=== PATIENT | female | born 1970 | race Caucasian/White ===

== ENCOUNTER 2019-03-27 16:51 | Emergency (ER) | payer OTHER ==
[~2019-03-27] VITALS: Ht 162.6 cm; Wt 102.1 kg
[~2019-03-27 16:51] MED LIST: BACTRIM DS TAB1 EACH PO; CYCLOBENZAPRINE10 MG PO; CYMBALTA20 MG PO; HYDROCHLOROTH12.5 MG PO; LANTUS100 UNITS/ SUB-Q; LOSARTAN-HCTZ1 EAC1 PO; METFORMIN HCL1000 MG PO; METFORMIN HCL500 MG PO; MULTIPLE VITAM1 EACH PO; NOVOLOG100 UNITS/ IV; NOVOLOG100 UNITS/ SUB-Q; PRILOSEC20 MG PO; QSYMIA 3.75 MG1 EACH PO; TRAMADOL HCL50 MG PO
--- OUTSIDE RECORDS SUMMARY | 2019-03-27 16:54 | XMS ---
PreManage Notification: GERRY SAWYER Security Dramatic Agent Events No recent Security Events currently on file CRITERIA MET - [facility] - Has Care Guidelines - [facility] - 2 Visits in 30 Days CARE PROVIDERS TOYIN DEL RIO PHONE: [phone] Indio Machado Current PHONE: Unknown Jean [place] Other Current Orthopedic Surgery \T\ Fracture Clinic PHONE: Unknown Guidelines Source: [employer] [place] Guidelines Date: 09/19/2018 Care Coordination: Mental health services with [employer].\T\nbsp; Please contact [employer] with mental health concerns.\T\nbsp; [place]: [phone]\T\[facility]; Tamie: [phone]. Sha VISIT COUNT (12 MO.) 3 MILLIE Michael TOTAL 3 NOTE: Visits indicate total known visits. ED/UCC VISIT TRACKING (12 MO.) 03/27/2019 16:51 MILLIE Meek [place] TYPE: Emergency COMPLAINT: - SKIN PROBLEM 03/23/2019 20:05 MILLIE Meek [place] TYPE: Emergency COMPLAINT: - SKIN PROBLEM 09/16/2018 15:22 MILLIE Meek [place] TYPE: Emergency COMPLAINT: - LEFT FLANK PAIN/NON INJURY INPATIENT VISIT TRACKING (12 MO.) No inpatient visits to display in this time frame [email or web address]
== END 2019-03-27 18:00 | disposition home or self-care (01) ==
LOC: ED 16:51
DX: L02.212 Cutaneous abscess of back [any part, except buttock and flank] (principal); L03.312 Cellulitis of back [any part except buttock and flank]; E11.9 Type 2 diabetes mellitus without complications; I10 Essential (primary) hypertension; E78.5 Hyperlipidemia, unspecified; Z87.891 Personal history of nicotine dependence; Z88.5 Allergy status to narcotic agent; Z88.8 Allergy status to other drugs, medicaments and biological substances; Z79.899 Other long term (current) drug therapy; Z79.84 Long term (current) use of oral hypoglycemic drugs
CPT/HCPCS: 99282

== ENCOUNTER 2019-06-12 15:50 | Emergency (ER) | payer OTHER ==
[~2019-06-12] VITALS: Ht 162.6 cm; Wt 108.9 kg
--- OUTSIDE RECORDS SUMMARY | 2019-06-12 15:54 | XMS ---
PreManage Notification: GERRY SAWYER Security Rehab Tech Events No recent Security Events currently on file CRITERIA MET - Group Notification - [facility] CARE PROVIDERS Karan Kagn Internal Medicine: Pulmonary Disease 03/28/2019-Current PHONE: Unknown TOYIN DEL RIO PHONE: [phone] Indio Machado MD PHONE: Unknown Jean [place] Current Orthopedic Surgery \T\ Fracture Clinic PHONE: Unknown Guidelines Source: Melanie - [place] Guidelines Date: 09/19/2018 Care Coordination: Mental health services with [employer].\T\nbsp; Please contact [employer] with mental health concerns.\T\nbsp; [place] Jain: [phone]\T\nbsp; Tamie: [phone]. Care History Medical/Surgical 03/28/2019 [facility] - PATIENT DOES NOT HAVE A PCP- LAST APT WITH SUSAN LEVINE ON 12/11/17. - PLEASE HAVE PATIENT PROVIDE UPDATED CONTACT NUMBER-NUMBER ON FILE GOES TO AN UNKNOWN MALE VOICEMAIL. - PLEASE REFER PATIENT TO THE WALK IN CLINIC TO ESTABLISH CARE. E.D. VISIT COUNT (12 MO.) 4 [facility]. TOTAL 4 NOTE: Visits indicate total known visits. ED/UCC VISIT TRACKING (12 MO.) 06/12/2019 15:51 MILLIE Meek [place] TYPE: Emergency COMPLAINT: - POSSIBLE OVERDOSE 03/27/2019 16:51 MILLIE Meek [place] TYPE: Emergency COMPLAINT: - SKIN PROBLEM DIAGNOSES: - Other custodial (current) drug therapy - Essential (primary) hypertension - Encntr for surgical aftcr fol surgery on the skin, subcu - Allergy status to narcotic agent status - 1 Type 2 diabetes mellitus without complications - Cellulitis of back [any part except buttock] - Cutaneous abscess of back [any part, except buttock] - Cutaneous abscess of back [any part, except buttock] - Allergy status to oth drug/meds/biol subst status - 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 - Personal history of nicotine dependence - Hyperlipidemia, unspecified 03/23/2019 20:05 MILLIE Meek [place] TYPE: Emergency COMPLAINT: - SKIN PROBLEM DIAGNOSES: - snf (current) use of oral hypoglycemic drugs - Cutaneous abscess of back [any part, except buttock] - Other long chain quiller tender (current) drug therapy - Allergy status to oth drug/meds/biol subst status - 1 Type 2 diabetes mellitus without complications - Essential (primary) hypertension - Allergy status to narcotic agent status - Hyperlipidemia, unspecified - Nicotine dependence, unspecified, uncomplicated 09/16/2018 15:22 MILLIE Meek [place] TYPE: Emergency COMPLAINT: - LEFT FLANK PAIN/NON INJURY INPATIENT VISIT TRACKING (12 MO.) No inpatient visits to display in this time frame [id number]
--- NOTE | 2019-06-13 10:58 | EKG ---
[facility] [address] [place], [place] [address] Signed Normal sinus rhythm Normal ECG No previous ECGs available Confirmed by GURDEEP SNOW MD ([id number]) on 06/13/2019 10:58:01 AM Electronically Signed By: GURDEEP SNOW MD 06/13/19 1058 PATIENT NAME: GERRY SAWYER Electrocardiogram DATE OF : 72 PHYSICIAN: GURDEEP SNOW MD REPORT #: [id number] REPORT IS CONFIDENTIAL AND NOT TO BE RELEASED WITHOUT AUTHORIZATION
== END 2019-06-13 00:46 | disposition home or self-care (01) ==
LOC: ED 15:50
DX: T46.5X2A Poisoning by other antihypertensive drugs, intentional self-harm, initial encounter (principal); F32.9 Major depressive disorder, single episode, unspecified; E11.9 Type 2 diabetes mellitus without complications; I10 Essential (primary) hypertension; E78.5 Hyperlipidemia, unspecified; F17.200 Nicotine dependence, unspecified, uncomplicated; Z88.5 Allergy status to narcotic agent; Z88.8 Allergy status to other drugs, medicaments and biological substances; Z79.899 Other long term (current) drug therapy; Z79.84 Long term (current) use of oral hypoglycemic drugs
CPT/HCPCS: 80053; 80176; 81001; 84703; 85025; 93005; 93010; 96361; 96374; 99284-25; G0480; J2405; J7030

== ENCOUNTER 2019-12-31 16:05 | Emergency (ER) | payer OTHER ==
[~2019-12-31] VITALS: Ht 162.6 cm; Wt 108.9 kg
--- OUTSIDE RECORDS SUMMARY | 2019-12-31 16:10 | XMS ---
PreManage Notification: ANGELICA SAWYER Security Borematic Operator Events No recent Security Events currently on file CRITERIA MET - [facility] - Has Care Guidelines CARE PROVIDERS PAULA HERNANDEZ Internal Medicine: Pulmonary Disease 03/28/2019-Current PHONE: Unknown TOYIN DEL RIO Physician Consulting Database Administrator Current L. PHONE: [phone] [facility]: 09/19/2018 Care Coordination: Mental health services with [employer].\T\nbsp; Please contact [employer] with mental health concerns.\T\nbsp; [place]: [phone]\T\nbsp; Tamie: [phone]. Care History Medical/Surgical 06/13/[address] [facility] - PATIENT HAS AN APT WITH PCP DR MITCHELL ON 06/14/2019. Substance Use/Overdose 06/12/[address] [facility] Saw client in opt. Patient did agree to come in for services.\T\nbsp; E.D. VISIT COUNT (12 MO.) [address] [facility] TOTAL 4 NOTE: Visits indicate total known visits. 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 - Nicotine dependence, unspecified, uncomplicated - Hyperlipidemia, unspecified - Major depressive disorder, single episode, unspecified - Other correction (current) drug therapy - Poisoning by other antihypertensive drugs, intentional self-h 03/27/2019 16:51 MILLIE Meek [place] TYPE: Emergency COMPLAINT: - SKIN PROBLEM DIAGNOSES: - Other keno terminal operator (current) drug therapy - Essential (primary) hypertension - Encounter for surgical aftercare following surgery on the ski - Allergy status to narcotic agent status - Type 2 diabetes mellitus without complications - Cellulitis of back [any part except buttock] - Cutaneous abscess of back [any part, except buttock] - Cutaneous abscess of back [any part, except buttock] - Allergy status to other drugs, medicaments and biological sub - assisted (current) use of oral hypoglycemic drugs - Personal history of nicotine dependence - Hyperlipidemia, unspecified 03/23/2019 20:05 MILLIE Meek OR TYPE: Emergency COMPLAINT: - SKIN PROBLEM DIAGNOSES: - assisted (current) use of oral hypoglycemic drugs - Cutaneous abscess of back [any part, except buttock] - Other correction (current) drug therapy - Allergy status to other drugs, medicaments and biological sub - Type 2 diabetes mellitus without complications - Essential (primary) hypertension - Allergy status to narcotic agent status - Hyperlipidemia, unspecified - Nicotine dependence, unspecified, uncomplicated INPATIENT VISIT TRACKING (12 MO.) No inpatient visits to display in this time frame [id number]
[2019-12-31] MEDS ORDERED: ATIVAN1 MG PO (16:29)
== END 2019-12-31 20:10 | disposition home or self-care (01) ==
LOC: ED 16:05
DX: F15.90 Other stimulant use, unspecified, uncomplicated (principal); E86.0 Dehydration; E11.9 Type 2 diabetes mellitus without complications; I10 Essential (primary) hypertension; E78.5 Hyperlipidemia, unspecified; F32.9 Major depressive disorder, single episode, unspecified; F41.9 Anxiety disorder, unspecified; F17.200 Nicotine dependence, unspecified, uncomplicated; Z88.5 Allergy status to narcotic agent; Z88.8 Allergy status to other drugs, medicaments and biological substances; Z79.899 Other long term (current) drug therapy
CPT/HCPCS: 80053; 81001; 96360; 99284-25; J7030

== ENCOUNTER 2022-10-02 05:47 | Day surgery (SDC) | payer OTHER ==
[2022-08-03 10:39] VITALS: BP 124/78
[2022-09-28 11:12] VITALS: BP 115/75
[~2022-10-02] VITALS: Ht 162.6 cm; Wt 128.2 kg
[~2022-10-02 05:47] MED LIST changes: +ATIVAN1 MG PO; +COZAAR50 MG PO; +HYDRALAZINE HCL25 MG PO; +INSULIN GL100 UNIT/4; +INSULIN LI100 UNIT/2; +OMEPRAZOLE20 MG PO; +OSTERA TABLET1 EACH PO; +TEGRETOL XR400 MG PO; +VENTOLIN HFA18 GM INH
[2022-10-02 06:04] VITALS: BP 145/64
[2022-10-02] MEDS ORDERED: IBUPROFEN600 MG PO (06:10)
--- NOTE | 2022-10-02 08:24 | NUR ---
10/02/22 0824 Ashley Machado 0814 PT TO PACU DROWSY, O2 VIA MASK ON 6L FOGGING NOTED IN MASK. CBG 106.
--- NOTE | 2022-10-02 08:37 | NUR ---
PT ALERT, ORIENTED AND HERE FOR HER FIRST SCOPE. PT ADMITTED SHE IS HERE DUE TO FAMILY HISTORY. GAVE ENCOURAGEMENT AND SUPPORT. ALL QUESTIONS ASKED WERE ANSWERED. PT REQUESTED PRAYER, WILL FOLLOW
[2022-10-02 08:44] VITALS: BP 145/92
--- NOTE | 2022-10-05 14:34 | OR ---
[facility] [address] [place], [place] [address] Signed DATE OF OPERATION: 10/02/2022 SURGEON: Greg Emery MD PREOPERATIVE DIAGNOSES: 1. Mother with multiple colonic polyps starting in her mid to late 40s. 2. Change in bowel habits with increasing constipation after discontinuing soda pop. POSTOPERATIVE DIAGNOSES: 1. Moderate circumferential external hemorrhoids. 2. Minimal internal hemorrhoids. 3. 5 mm polyp proximal transverse colon. 4. 5 mm polyp at 18 cm in distal sigmoid colon. PROCEDURE: Colonoscopy with hot biopsy. ESTIMATED BLOOD LOSS: None. INDICATIONS: Angelica is a 52-year-old female with obesity and diabetes. She was asked to see me for her initial colonoscopy. She told me her mother had multiple colonic polyps removed starting in her mid to late 40s. No family history of colon cancer. Angelica stopped her soda pop and noticed that she had a change in bowel habits with constipation, now having a bowel movement about every other day. In the office, I gave her a pamphlet on colonoscopy. We had reviewed the nature of the test. There is risk including, but not limited to gas bloating, crampy abdominal pain, bleeding, perforation requiring surgery, and missed diagnosis. We also reviewed the written instructions for the bowel prep line by line. She took a full gallon of polyethylene glycol and that worked out nicely. In addition, because of her body mass index of 50 with a very full round face, heavy neck, chest and abdomen along with her medical issues, we did ask for monitored anesthesia care with propofol infusion and that actually proved to be a irizarry decision. She had expressed understanding and wished to proceed. PROCEDURE NOTE: Angelica was taken into our endoscopy suite and placed in the left lateral decubitus position. She was given monitored anesthesia care with propofol infusion per our nurse associate professor of biostatistics. A digital rectal exam was performed and she has moderate circumferential external hemorrhoids. She had good sphincter tone. There were no masses. The adult Electronically Signed By: GREG EMERY MD 10/02/22 0937 PATIENT NAME: ANGELICA SAWYER OPERATIVE REPORT DATE OF : 72 REPORT #: [id number] PHYSICIAN: GREG EMERY MD PCP: YULIYA MITCHELL MD REPORT IS CONFIDENTIAL AND NOT TO BE RELEASED WITHOUT AUTHORIZATION [facility] [address] [place], [place] [address] Signed colonoscope was introduced and advanced all around into the cecum under direct visualization of the camera. It took some extra propofol and some abdominal compression in order to advance the scope. Her prep was quite good. We could easily see the appendiceal orifice and the ileocecal valve. The scope was then slowly withdrawn. We took pictures throughout for photodocumentation. We took the two polyps mentioned above out with the help of a hot biopsy forceps. We did not see any diverticula. The rectum was unremarkable. Upon retroflexion of the scope, she has minimal internal hemorrhoid columns. After this, the gas was suctioned out and the colonoscope removed. Angelica tolerated the procedure quite well. RECOMMENDATIONS: I will see Angelica back in my office in 7 to 14 days to review her results. I suspect she will be on the five year plan. Greg Emery MD ALB/MODL /[id number] cc: MD Yuliya Pedroza MD Copies: GREG EMERY MD ~ Electronically Signed By: GREG EMERY MD 10/02/22 0937 PATIENT NAME: ANGELICA SAWYER OPERATIVE REPORT DATE OF : 72 REPORT #: [id number] PHYSICIAN: GREG EMERY MD PCP: YULIYA MITCHELL MD REPORT IS CONFIDENTIAL AND NOT TO BE RELEASED WITHOUT AUTHORIZATION
--- NOTE | 2022-10-05 14:48 | PATH ---
[facility] [address] [place], [place] [address] Signed SPECIMEN(S): A PROXIMAL TRANSVERSE COLON POLYP SPECIMEN(S): B DISTAL SIGMOID POLYP AT 18 CM SPECIMEN SOURCE: A. PROXIMAL TRANSVERSE COLON POLYP B. DISTAL SIGMOID POLYP AT 18 CM CLINICAL HISTORY: Colonoscopy. Preop Dx: Initial screening colonoscopy. FINAL PATHOLOGIC DIAGNOSIS: A. Proximal transverse colon polyp: - Hyperplastic polyp. - Negative for dysplasia. B. Distal sigmoid polyp at 18 cm: - Hyperplastic polyp. - Negative for dysplasia. NA:sjc:[id number] MICROSCOPIC EXAMINATION: Histologic sections of all submitted blocks are examined by light microscopy. These findings, together with the gross examination, support the pathologic diagnosis. GROSS DESCRIPTION: A. The specimen, labeled and designated "Altizer, proximal transverse colon polyp," is received in formalin and consists of three blanchard, soft tissue fragments ranging from 0.1-0.4 cm. Entirely submitted in (A1). B. The specimen, labeled and designated "Altizer, distal sigmoid polyp at 18 cm," is received in formalin and consists of three blanchard, soft tissue fragments ranging from 0.2-0.3 cm. Entirely submitted in (B1). VB (under the direct supervision of a pathologist) The Gross Description was prepared using a voice recognition system. The report was reviewed for accuracy; however, sound-alike word errors, addition and/or deletions may occur. If there is any question about this report, please contact Client Services. PERFORMING LABORATORY: The technical component was performed by [employer], Jemima Love, PATIENT NAME: ANGELICA SAWYER PATHOLOGY DATE OF : 72 REPORT #: [id number] PHYSICIAN: FRANCHESCA PATHOLOGY PCP: SONIYA MITCHELL MD REPORT IS CONFIDENTIAL AND NOT TO BE RELEASED WITHOUT AUTHORIZATION [address] [place], [place] [address] [place] [address] (CLIA# [id number]). Professional interpretation was performed by [employer], [facility], [place], [address] [place] [address] [place] [address] (CLIA#: [id number]) Diagnostician: August Hannah MD Pathologist Electronically Signed 10/05/2022 Copies: ~ PATIENT NAME: ANGELICA SAWYER PATHOLOGY DATE OF : 72 REPORT #: [id number] PHYSICIAN: FRANCHESCA ADAMS PCP: SONIYA MITCHELL MD REPORT IS CONFIDENTIAL AND NOT TO BE RELEASED WITHOUT AUTHORIZATION
== END 2022-10-02 09:00 | disposition home or self-care (01) ==
LOC: OPS 05:47 → DS 05:47 → OPS 07:30
PROVIDERS: ATTEND Colon & Rectal Surgery
PROC: 0DBE8ZX Excision of Large Intestine, Via Natural or Artificial Opening Endoscopic, Diagnostic (ICD-10-PCS; principal; 2022-10-02 07:30)
DX: K63.5 Polyp of colon (principal); K59.00 Constipation, unspecified; K64.4 Residual hemorrhoidal skin tags; K64.8 Other hemorrhoids; E11.9 Type 2 diabetes mellitus without complications; J45.909 Unspecified asthma, uncomplicated; I10 Essential (primary) hypertension; E78.00 Pure hypercholesterolemia, unspecified; E66.9 Obesity, unspecified; F41.9 Anxiety disorder, unspecified; F32.A Depression, unspecified; F12.10 Cannabis abuse, uncomplicated; Z83.71 Family history of colonic polyps; Z88.5 Allergy status to narcotic agent; Z88.8 Allergy status to other drugs, medicaments and biological substances
CPT/HCPCS: J2704; J7121

== ENCOUNTER 2024-01-04 19:30 | Emergency (ER) | payer MEDICARE, OTHER ==
[~2024-01-04] VITALS: Ht 162.6 cm; Wt 120.0 kg
[~2024-01-04 19:30] MED LIST changes: +IBUPROFEN600 MG PO
[2024-01-04] MEDS ORDERED: PRAVASTATIN SOD40 MG PO (20:17)
[2024-01-04] MEDS ORDERED: CAPLYTA42 MG PO (20:17)
[2024-01-04] MEDS ORDERED: METFORMIN HCL500 MG PO (20:17)
[2024-01-04] MEDS ORDERED: HYDROCHLOROTHIA25 MG PO (20:18)
[2024-01-04] MEDS ORDERED: OZEMPIC2 MG/0.75 SUB-Q (20:18)
[2024-01-04] MEDS ORDERED: VALTREX1000 MG PO (21:05)
[2024-01-04] MEDS ORDERED: DOXYCYCLINE HY100 MG PO (21:05)
[2024-01-04 21:12] VITALS: BP 126/99
[2024-01-04] MEDS ORDERED: VALACYCLOVIR HCL 500 MG TAB PO ONE (21:15)
[2024-01-04] MEDS ORDERED: DOXYCYCLINE HYCLATE 100 MG CAP PO ONE (21:15)
== END 2024-01-04 21:12 | disposition home or self-care (01) ==
LOC: ED 19:30
DX: B00.1 Herpesviral vesicular dermatitis (principal); K13.0 Diseases of lips; E11.9 Type 2 diabetes mellitus without complications; I10 Essential (primary) hypertension; E78.5 Hyperlipidemia, unspecified; F17.200 Nicotine dependence, unspecified, uncomplicated; Z88.5 Allergy status to narcotic agent; Z88.8 Allergy status to other drugs, medicaments and biological substances; Z79.84 Long term (current) use of oral hypoglycemic drugs; Z79.4 Long term (current) use of insulin
CPT/HCPCS: 10160; 99282-25

== ENCOUNTER 2024-10-20 09:53 | Emergency (ER) | payer MEDICARE, OTHER ==
[~2024-10-20] VITALS: Ht 162.6 cm; Wt 90.0 kg
[~2024-10-20 09:53] MED LIST changes: +CAPLYTA42 MG PO; +DOXYCYCLINE HY100 MG PO; +HYDROCHLOROTHIA25 MG PO; +OZEMPIC2 MG/0.75 SUB-Q; +PRAVASTATIN SOD40 MG PO; +VALTREX1000 MG PO
[2024-10-20 10:24] LABS: BASOPHILS 0.5 % (0.1-1.2); EOSINOPHILS 0 % (0.7-5.8); HEMATOCRIT 38.1 % (34.1-44.9); HEMOGLOBIN 12.8 g/dL (11.2-15.7); LYMPHOCYTES 14.5 % (19.3-51.7); MCH 27.2 PG (25.6-32.2); MCHC 33.6 g/dL (32.2-35.5); MCV 81.1 fL (79.4-94.8); MONOCYTES 10.1 % (4.7-12.5); NEUTROPHILS 74.6 % (34.0-71.1); PLATELET COUNT 250 K/uL (182-369)
[2024-10-20 10:34] LABS: ALBUMIN 2.9 g/dL (3.4-5.0); ALBUMIN/GLOBULIN RATIO 0.59 (1.1-2.4); ANION GAP 10.9 (7-21); BILIRUBIN, TOTAL 0.6 mg/dL (0.2-1.0); BUN/CREATININE RATIO 9.47 (6.0-28.6); CALCIUM 8.8 mg/dL (8.5-10.1); CREATININE, SERUM 0.95 mg/dL (0.55-1.02); POTASSIUM 2.9 mmol/L (3.5-5.1); PROTEIN, TOTAL 7.8 g/dL (6.4-8.2)
[2024-10-20] MEDS ORDERED: POLYETHYLENE G500 G3 MISC (10:44)
[2024-10-20] MEDS ORDERED: OMEPRAZOLE20 MG PO (10:44)
[2024-10-20] MEDS ORDERED: CALCIUM CITRAT200 MG PO (10:45)
[2024-10-20] MEDS ORDERED: COL-RITE100 MG PO (10:46)
[2024-10-20] MEDS ORDERED: ACETAMINOPHEN500 MG PO (10:47)
[2024-10-20] MEDS ORDERED: ADULT ASPIRIN R81 MG PO (10:48)
[2024-10-20 11:03] LABS: LACTIC ACID, BLOOD 0.8 mmol/L (0.4-2.0)
[2024-10-20 11:04] LABS: BILIRUBIN, URINE NEGATIVE (negative); BLOOD/HGB, URINE TRACE-L (Negative); KETONE, URINE NEGATIVE (Negative); LEUK ESTERASE, URINE MODERATE (negative); NITRITE, URINE POSITIVE (negative); PH, URINE 6.5 (5-7)
[2024-10-20 11:12] LABS: RED BLOOD CELLS, URINE 0-1 /hpf (0-5); WHITE BLOOD CELLS, URINE >50 /HPF (0-5)
[2024-10-20 11:13] LABS: BACTERIA, URINE 2+ /hpf (negative); CASTS, URINE NONE SEEN \\lpf; COLLECTION TYPE, URINE CLEAN CATCH; CRYSTALS, URINE NONE SEEN (0-1+); EPITHELIAL CELLS, URINE SQUAMOUS 1+ /lpf (0-1+); REFLEX CULTURE, URINE Yes (No)
[2024-10-20] MEDS ORDERED: ACETAMINOPHEN 325 MG TAB PO ONE (11:15)
[2024-10-20] MEDS ORDERED: CEFTRIAXONE SODIUM 1 GM in SODIUM CHLORIDE 0.9% 100 ML IV ONE (12:30)
[2024-10-20 13:59] VITALS: BP 107/66
[2024-10-20] MEDS ORDERED: CEPHALEXIN500 MG PO (14:01)
== END 2024-10-20 14:25 | disposition home or self-care (01) ==
LOC: ED 09:53
PROVIDERS: Emergency Medicine
DX: N39.0 Urinary tract infection, site not specified (principal); E11.9 Type 2 diabetes mellitus without complications; I10 Essential (primary) hypertension; E78.5 Hyperlipidemia, unspecified; F17.200 Nicotine dependence, unspecified, uncomplicated; Z88.5 Allergy status to narcotic agent; Z88.8 Allergy status to other drugs, medicaments and biological substances; Z79.899 Other long term (current) drug therapy
CPT/HCPCS: 36415; 74177; 80053; 81001; 83605; 83690; 85025; 87040; 87077; 87088; 87186; 99284-25; A9270; J0696; Q9967

== ENCOUNTER 2025-03-28 11:22 | Emergency (ER) | payer MEDICARE ==
[~2025-03-28] VITALS: Ht 162.6 cm; Wt 85.0 kg
[~2025-03-28 11:22] MED LIST changes: +ACETAMINOPHEN500 MG PO; +ADULT ASPIRIN R81 MG PO; +CALCIUM CITRAT200 MG PO; +CEPHALEXIN500 MG PO; +COL-RITE100 MG PO; +POLYETHYLENE G500 G3 MISC
[2025-03-28] MEDS ORDERED: OZEMPIC2 MG/0.75 SQ (14:17)
[2025-03-28 16:19] VITALS: BP 000/00
== END 2025-03-28 16:15 | disposition home or self-care (01) ==
LOC: ED 11:22
DX: S62.636A Displaced fracture of distal phalanx of right little finger, initial encounter for closed fracture (principal); I10 Essential (primary) hypertension; E11.9 Type 2 diabetes mellitus without complications; E78.5 Hyperlipidemia, unspecified; F17.200 Nicotine dependence, unspecified, uncomplicated; W22.8XXA Striking against or struck by other objects, initial encounter; Z79.82 Long term (current) use of aspirin; Z79.899 Other long term (current) drug therapy; Z88.5 Allergy status to narcotic agent; Z88.8 Allergy status to other drugs, medicaments and biological substances
CPT/HCPCS: 73140; 99283